=== PATIENT | female | born 1985 | race Caucasian/White ===

== ENCOUNTER 2017-06-16 15:06 | Emergency (ER) | payer MEDICAID ==
[2017-06-16 15:16] VITALS: BP 116/65; PULSE 62; RESP 18; TEMP 98.1; O2SAT 99
--- NOTE | 2017-06-16 16:09 | EDPHY ---
H & P Stated Complaint: cut r palm on broken metal door Time Seen by Provider: 06/16/17 15:24 HPI/ROS: Chief complaint: Right hand laceration History of present illness: This is a 32-year-old female who presents to the emergency department for right hand laceration. Patient states she cut the palm of right hand on a broken metal door knob just prior to arrival. She does not believe anything broke off or that foreign bodies could got into the wound. She reports pain. She denies difficulty moving the fingers. She denies abnormal coolness or paresthesias in the finger. Her tetanus is up-to-date. - Personal History LMP (Females 10-55): 1-7 Days Ago Current Tetanus/Diphtheria Vaccine: Unsure - Medical/Surgical History Hx Asthma: No Hx Chronic Respiratory Disease: No Hx Diabetes: No Hx Cardiac Disease: No Hx Renal Disease: No Hx Cirrhosis: No Hx Alcoholism: No Hx HIV/AIDS: No Hx Splenectomy or Spleen Trauma: No Other PMH: denies - Social History Smoking Status: Never smoked - Physical Exam Exam: General: Alert, nontoxic Skin: 1 cm laceration to the distal palmar surface of the right hand. Musculoskeletal: Patient is flexing and extending all joints in all digits in all espinal without difficulty. She is moving the wrist in all espinal. Vascular: Capillary refill brisk in all digits of the right hand. Neurologic: Sensation intact using light touch and two-point discrimination all digits of the right hand. Constitutional: Initial Vital Signs Temperature (C) 36.7 C 06/16/17 15:13 Heart Rate 62 06/16/17 15:13 Respiratory Rate 18 06/16/17 15:13 Blood Pressure 116/65 06/16/17 15:13 O2 Sat (%) 99 06/16/17 15:13 O2 Delivery Mode Room Air Allergies/Adverse Reactions: No Known Allergies Allergy (Unverified 06/16/17 15:13) Home Medications: Medication Instructions Recorded NK [No Known Home Meds] 06/16/17 Medical Decision Making Procedures: Procedure: Laceration repair. Verbal consent was obtained from the patient. The 1 cm laceration on the right hand was anesthetized in the usual fashion. The wound was irrigated, draped and explored to its base with a gloved finger. There were no deep structures involved. No tendon injury was identified. The wound was repaired with 5 0 Prolene, 4 simple interrupted sutures. The wound repair was simple. The procedure was performed by myself. ED Course/Re-evaluation: Patient seen under the supervision of my secondary supervising physician Dr. Melida Ding. Patient presents to the emergency department for right hand laceration. Her hand appears to be neurovascularly intact. She has good musculoskeletal control of the digits and wrist. Exploration of the wound does not reveal foreign body or deep structure injury. The wound is irrigated, repaired and dressed. She is discharged home. Home care is discussed. She is referred to a hand doctor for recheck given location of injury. Return precautions are given. Patient voiced understanding and agreement with plan. Differential Diagnosis: Included but not limited to laceration, foreign body contamination, deep structure injury Departure - Departure Disposition: Home, Routine, Self-Care Clinical Impression: Hand laceration Qualifiers: Encounter type: initial encounter Foreign body presence: without foreign body Laterality: right Qualified Code(s): S61.411A - Laceration without foreign body of right hand, initial encounter Condition: Good Instructions: Care For Your Stitches (ED), Laceration (ED), Acute Wounds (ED) Additional Instructions: Follow-up with a hand doctor for continued evaluation and care Stitches to be removed in approximately 10 days If symptoms worsen or new symptoms develop return to the emergency room for recheck Referrals: NONE *PRIMARY CARE P,. [Primary Care Provider] - As per Instructions Adrien Dillon MD [Medical Doctor] - As per Instructions
== END 2017-06-16 16:22 | disposition home or self-care (01) ==
PROC: 0HQFXZZ Repair Right Hand Skin, External Approach (ICD-10-PCS; principal; 2017-06-16)
DX: S61.411A Laceration without foreign body of right hand, initial encounter (principal); W26.8XXA Contact with other sharp object(s), not elsewhere classified, initial encounter